=== PATIENT | male | born 1985 | race African-American/Black ===

== ENCOUNTER 2022-06-30 15:09 | Emergency (ER) | payer OTHER ==
[~2022-06-30] VITALS: Ht 175.3 cm; Wt 64.0 kg
[2022-06-30 15:13] VITALS: BP 136/83
== END 2022-06-30 22:34 | disposition left against medical advice (07) ==
LOC: ER 15:09
DX: Z53.21 Procedure and treatment not carried out due to patient leaving prior to being seen by health care provider (principal)